=== PATIENT | female | born 1990 | race Caucasian/White ===

== ENCOUNTER 2022-10-06 06:25 | Emergency (ER) | payer OTHER ==
[2022-10-06] MEDS ORDERED: Dexamethasone 4 MG TAB ONE (07:26)
== END 2022-10-06 07:30 | disposition home or self-care (01) ==
LOC: MADERS 06:25
DX: J06.9 Acute upper respiratory infection, unspecified (principal); J02.8 Acute pharyngitis due to other specified organisms; F17.290 Nicotine dependence, other tobacco product, uncomplicated
CPT/HCPCS: 87081; 87430; 87804; 99283; J8540